=== PATIENT | female | born 1950 | race Caucasian/White ===

== ENCOUNTER → 2016-12-17 | Outpatient (CLI) | payer OTHER ==
[~2016-12-17] MED LIST: ASPI81TA5 PO; BUTA1TAB30 PO; CARA1SUS3 PO; CARV6.25 PO; GABA300C5 PO; HYDR-3516 PO; LEVO25TA4 PO; LIPI40TA PO; LORA-373 PO; LOSA25TA PO; OXYC-392 PO; PANT40TA3 PO; PLAV75TA29 PO; REGL10TA5 PO; SERT-129 PO; TRAZ50TA12 PO; ZOFR4TAB PO
[2016-12-17 12:51] LABS: HEMATOCRIT 35.9 % (35.0-46.0); MEAN CELL VOLUME 86.1 FL (80.0-100.0); MEAN CORPUSCULAR HEMOGLOBIN 27.9 PG (27.0-34.0); MEAN CORPUSCULAR HGB CONC 32.4 % (32.0-36.0); PLATELET COUNT 221 TH/MM3 (150-450); RED BLOOD COUNT 4.17 MIL/MM3 (4.00-5.30); RED CELL DISTRIBUTION WIDTH 15.9 % (11.6-17.2); REVIEW FLAG FINAL; WHITE BLOOD COUNT 8.5 TH/MM3 (4.0-11.0)
[2016-12-17 12:52] LABS: APTT (PATIENT) 27.5 SEC (24.3-30.1); PROTHROMBIN TIME - PATIENT 11.3 SEC (9.8-11.6)
[2016-12-17 13:10] LABS: BICARBONATE 29.2 MEQ/L (21.0-32.0); POTASSIUM 4.7 MEQ/L (3.5-5.1)
--- NOTE | 2016-12-17 13:11 | RADRPT ---
EXAM DATE/TIME: 12/17/2016 12:54 [place] COMPARISON: No previous studies available for comparison. INDICATIONS : Evaluate for pneumothorax, pneumonia, and communicable diseases. Pre-op groin surgery MEDICAL HISTORY : None. SURGICAL HISTORY : Valve replacement 4yrs ago ENCOUNTER: Initial ACUITY: 1 day PAIN SCORE: 0/10 LOCATION: chest FINDINGS: No infiltrate, effusion or pneumothorax. Heart size normal. Patient has had previous median sternotom y, CABG and valve replacement. Surgical changes of the left breast and left axilla noted. CONCLUSION: No evidence of acute cardiopulmonary disease. Luigi Dillard MD on December 17, 2016 at 13:09 Board Certified Radiologist. This report was verified electronically.
[2016-12-17 13:34] LABS: BACTERIA, URINE RARE /hpf; BLOOD, URINE TRACE (NEG); COMMENT (UR) CULT NOT INDICATED; CULTURE IF INDICATED CULT NOT INDICATED; GLUCOSE,URINE NEG (NEG); KETONE, URINE NEG (NEG); NITRITE,URINE NEG (NEG); PH, URINE 6.5 (5.0-8.5); URINE COLOR YELLOW (YELLW/STRAW)
--- NOTE | 2016-12-19 13:06 | EKG ---
Date Performed: 12/17/2016 Time Performed: 11:37:40 PTAGE: 66 years EKG: SINUS BRADYCARDIA NONSPECIFIC T-WAVE ABNORMALITY BORDERLINE ECG NO PREVIOUS TRACING DOCTOR: Devyn Jones Interpretating Date/Time 12/19/2016 12:56:27
== END ==
LOC: CPRE 11:17
PROVIDERS: ATTEND Surgery
DX: Z01.810 Encounter for preprocedural cardiovascular examination (principal); Z01.811 Encounter for preprocedural respiratory examination; Z01.812 Encounter for preprocedural laboratory examination; I73.9 Peripheral vascular disease, unspecified; R94.31 Abnormal electrocardiogram [ECG] [EKG]
CPT/HCPCS: 36415; 71020; 80048; 81001; 85027; 85610; 85730; 86850; 86900; 86901; 86920; 93005

== ENCOUNTER 2016-12-19 05:59 | Inpatient (IN) | payer OTHER, MEDICARE ==
[~2016-12-19] VITALS: Ht 157.5 cm; Wt 54.0 kg
[2016-12-19] VITALS (11 sets, daily range): BP systolic 132–165; BP diastolic 71–97; PULSE 61–75; RESP 16–18; TEMP 97.7–98.6; O2SAT 94–98
[~2016-12-19 05:59] MED LIST changes: -OXYC-392 PO
[2016-12-19] MEDS ORDERED: METOPROLOL TARTRATE 25 MG TAB PO PRN (06:15)
[2016-12-19] MEDS ORDERED: LACTATED RINGER'S 1000 ML IV PRN (06:15)
[2016-12-19] MEDS ORDERED: INSULIN HUMAN REGULAR 1,000 UNITS/10 ML VIAL SQ PRN (06:15)
[2016-12-19] MEDS ORDERED: SODIUM CHLORID 0.9% 500 ML IV PRN (06:15)
[2016-12-19] MEDS ORDERED: CHLORHEXIDINE GLUCONATE 2 % 1 PACK (2 CLOTHS) TOPICAL PRN (06:15)
[2016-12-19] MEDS ORDERED: POVIDONE IODINE 5% (ANTISEPSIS KIT) 4 APPLICATIONS EACH NARE PRN (06:15)
[2016-12-19] MEDS ORDERED: MIDAZOLAM HCL 2 MG/2 ML VIAL ONE (08:23)
[2016-12-19] MEDS ORDERED: DEXAMETHASONE SOD PHOS 4 MG/ML VIAL ONE (08:23)
[2016-12-19] MEDS ORDERED: ACETAMINOPHEN 1000 MG/100 ML 100 ML IV ONE (08:23)
[2016-12-19] MEDS ORDERED: FAMOTIDINE 20 MG/2 ML VIAL ONE (08:23)
--- NOTE | 2016-12-19 08:45 | HHI.HP ---
History of Present Illness Chief Complaint: LEFT leg pain, threatened bypass History of Present Illness 66 yo female with PAD who has undergone ABF and L LE bypass and what sounds like R LE endovascular intervention. She has symptoms consistent with vasculogenic claudication but ABIs are 1. A CTA done to evaluate that showed that her LEFT profunda is disconnected, so in essence she has an aorto- popliteal prosthetic bypass. After a long discussion with the patient and her family, I think the termite treater patency is much improved with a groin reconstruction (ilioprofunda bypass). Patient understands procedure and is ready to proceed. Past/Family/Social History Past Medical History HTN brast CA COPD gastroparesis HTN hypothyroidism CVOD Past Surgical History ABF L fem-pop Social History smoker Family History NC Home Medications Reported Medications Butalbital-Acetaminophen (Butalbital-Acetaminophen) 50-325 Mg Tab, 1-2 TAB PO Q4HR Y for HEADACHE, TAB 0 Refills Do not exceed 6 tablets per day. 12/17/16 Sucralfate Liq (Carafate Liq) 1 Gm/10 Ml Susp, 1 GM PO QID Y for NAUSEA, #1200 ML 0 Refills on empty stomach 12/17/16 Ondansetron (Zofran) 4 Mg Tab, 4 MG PO Q12HR Y for NAUSEA OR VOMITING, TAB 0 Refills 12/17/16 Gabapentin (Gabapentin) 300 Mg Cap, 300 MG PO TID, #90 CAP 0 Refills 12/17/16 Hydrocodone-Acetaminophen (Hydrocodone-Acetaminophen) 5-325 mg Tab, PO Q4H Y for PAIN, TAB 0 Refills 12/17/16 Pantoprazole (Pantoprazole) 40 Mg Tab, 40 MG PO HS for Reflux, #30 TAB 0 Refills 12/17/16 Trazodone (Trazodone) 50 Mg Tab, 50 MG PO HS for Control Depression, #30 TAB 0 Refills 12/17/16 Atorvastatin (Lipitor) 40 Mg Tab, 40 MG PO HS for Cholesterol Management, #30 TAB 0 Refills 12/17/16 Lorazepam (Lorazepam) 0.5 Mg Tab, 0.5 MG PO BID Y for ANXIETY, TAB 0 Refills 12/17/16 Losartan (Losartan) 25 Mg Tab, 12.5 MG PO BID for Blood Pressure Management, # 15 TAB 0 Refills 12/17/[address] (Aspirin ) 81 Mg Tabdr, 81 MG PO DAILY, TAB 0 Refills 12/17/16 Clopidogrel (Plavix) 75 Mg Tab, 75 MG PO DAILY for Blood Clot Prevention, #30 TAB [address] kelley told her not to stop taking 12/17/16 Sertraline (Sertraline) 100 Mg Tab, 100 MG PO DAILY, #30 TAB 0 Refills 12/17/16 Carvedilol (Coreg) 6.25 Mg Tab, 6.25 MG PO BID, #60 TAB 0 Refills pt takes at 9am and 5pm 12/17/16 Metoclopramide (Reglan) 10 Mg Tab, 10 MG PO TIDAC, TAB 0 Refills 12/17/16 Levothyroxine (Levothyroxine) 25 Mcg Tab, 40 MCG PO DAILY for Thyroid, #30 TAB 0 Refills 12/17/16 Coded Allergies: No Known Allergies (Unverified , 12/19/16) Review of Systems Constitutional: COMPLAINS OF: Diaphoretic episodes, DENIES: Fever, Night Sweats Cardiovascular: COMPLAINS OF: Claudication, DENIES: Chest pain Physical Exam Vitals/I&O Date Time Temp Pulse Resp B/P (MAP) Pulse Ox O2 Delivery O2 Flow Rate FiO2 12/19/16 07:16 97.9 62 20 153/76 (101) 95 Neuro: alert, oriented HEENT: NC/AT; EOMI Neck: no JVD Heart: reg rate, no M Lungs: clear B Abdomen: soft, NT Vascular: palpable femoral pulses Extremities: no wounds cr 0.9 INR 1.0 Hct 36 plt 221 Caprini VTE Risk Assessment Caprini VTE Risk Assessment: Mod/High Risk (score >= 2) Caprini Risk Assessment Model Point Value = 1 Point Value = 2 Point Value = 3 Point Value = 5 Age 41-60 Minor surgery BMI > 25 kg/m2 Swollen legs Varicose veins or History of unexplained or recurrent spontaneous Oral contraceptives or hormone replacement Sepsis (< 1 month) Serious lung disease, including pneumonia (< 1 month) Abnormal pulmonary function Acute myocardial infarction Congestive heart failure (< 1 month) History of inflammatory bowel disease Medical patient at bed rest Age 61-74 Arthroscopic surgery Major open surgery (> 45 min) Laparoscopic surgery (> 45 min) Malignancy Confined to bed (> 72 hours) Immobilizing plaster cast Central venous access Age >= 75 History of VTE Family history of VTE Factor V Leiden Prothrombin [id number] Lupus anticoagulant Anticardiolipin antibodies Elevated serum homocysteine Heparin-induced thrombocytopenia Other congenital or acquired thrombophilia Stroke (< 1 month) Elective arthroplasty Hip, pelvis, or leg fracture Acute spinal cord injury (< 1 month) Prophylaxis Regimen Total Risk Factor Score Risk Level Prophylaxis Regimen 0-1 Low Early ambulation 2 Moderate Order ONE of the following: *Sequential Compression Device (SCD) *Heparin 5000 units SQ BID 3-4 Higher Order ONE of the following medications: *Heparin 5000 units SQ TID *Enoxaparin/Lovenox 40 mg SQ daily (WT < 150 kg, CrCl > 30 mL/min) *Enoxaparin/Lovenox 30 mg SQ daily (WT < 150 kg, CrCl > 10-29 mL/min) *Enoxaparin/Lovenox 30 mg SQ BID (WT < 150 kg, CrCl > 30 mL/min) AND/OR *Sequential Compression Device (SCD) 5 or more Highest Order ONE of the following medications: *Heparin 5000 units SQ TID (Preferred with Epidurals) *Enoxaparin/Lovenox 40 mg SQ daily (WT < 150 kg, CrCl > 30 mL/min) *Enoxaparin/Lovenox 30 mg SQ daily (WT < 150 kg, CrCl > 10-29 mL/min) *Enoxaparin/Lovenox 30 mg SQ BID (WT < 150 kg, CrCl > 30 mL/min) AND *Sequential Compression Device (SCD) Assessment and Plan Plan L groin reconstruction today Pt understands risks, benefits. To OR. Operative site marked Tomas Kelley MD Dec 19, 2016 08:45
[2016-12-19] MEDS ORDERED: HEPARIN SODIUM - IV 10,000 UNITS/10 ML VIAL ONE (08:57)
[2016-12-19] MEDS ORDERED: HEPARIN-NS/PF INJ 500 ML ONE (08:57)
[2016-12-19] MEDS ORDERED: ceFAZolin INJ 1,000 MG VIAL ONE (08:57)
[2016-12-19] MEDS ORDERED: BUPIVACAINE/EPINEPHRINE 0.5% PF 30 ML VIAL ONE (08:57)
[2016-12-19] MEDS ORDERED: PROTAMINE SULFATE 50 MG/5 ML VIAL ONE (11:05)
--- NOTE | 2016-12-19 11:37 | HHI.PR ---
Immediate Post Op Note Procedure Date: Dec 19, 2016 Pre Op Diagnosis: Threatened L LE bypass, PAD Post Op Diagnosis: threatened L LE bypass, PAD Surgeon: Tomas Munoz Automatic Lathe Operator(s): Davi Mancia Procedure: 1. L ilioprofunda bypass with 8mm Dacron 2. L MEDICAL RESEARCH ASSOCIATE-SFA bypass with 6mm Dacron Findings: occluded proximal profunda, able to bypass with 4 patent outflow profunda branches Additional Information: Strong pedal Doppler signals Complications: none apparent Specimen(s) removed: none for pathology Estimated blood loss: 200 mL Anesthesia: General Drains: None Fluids: 2100mL x'oid; 1050mL UOP IVF Patient to: PACU Patient Condition: Good Implant/Devices: SEE IMPLANT LOG (if applicable) Date/Time of Procedure: SEE SURGICAL CARE RECORD Tomas Munoz MD Dec 19, 2016 11:37
[2016-12-19] MEDS ORDERED: SUCRALFATE 1 GM/10 ML CUP PO PRN (11:45)
[2016-12-19] MEDS ORDERED: ONDANSETRON ODT 4 MG TAB PO PRN (11:45)
[2016-12-19] MEDS ORDERED: LORazepam 0.5 MG TAB PO PRN (11:45)
[2016-12-19] MEDS ORDERED: NORMOSOL R INJ 2,000 ML IV ONE (11:48)
[2016-12-19] MEDS ORDERED: ePHEDrine/NS 25 MG/5 ML SYR IV ONE (11:48)
[2016-12-19] MEDS ORDERED: PROPOFOL 200 MG/20 ML AMP IV ONE (11:48)
[2016-12-19] MEDS ORDERED: NEOSTIGMINE 3 MG/3 ML SYR IV ONE (11:48)
[2016-12-19] MEDS ORDERED: SODIUM CHLORID 0.9% 500 ML INJ 500 ML IV ONE (11:48)
[2016-12-19] MEDS ORDERED: PHENYLEPH/NS 1000 MCG/10 ML SYR IV ONE (11:48)
[2016-12-19] MEDS ORDERED: DO NOT ADM ANY ANTICOAGULANT DRUGS PRN (11:59)
[2016-12-19] MEDS ORDERED: *morphine SULFATE 8 MG/ML PERIprocedure ONLY ONE ×2 (12:09→12:41)
[2016-12-19] MEDS: GABAPENTIN 300 MG CAP PO SCH ×2 (13:21→17:07)
[2016-12-19] MEDS: HYDROmorphone HCL 2 MG TAB PO PRN ×3 (13:21→21:16)
[2016-12-19] MEDS: MORPHINE SULFATE 4 MG/ML INJ IV PRN ×5 (13:22→23:38)
[2016-12-19] MEDS ORDERED: PILL SPLITTER OTHER PRN (13:30)
[2016-12-19] MEDS: METOCLOPRAMIDE HCL 10 MG TAB PO SCH ×2 (14:56→17:07)
--- NOTE | 2016-12-19 18:27 | MP ---
cc: SARAH MUNOZ MD DATE OF SURGERY 12/19/16 PREOPERATIVE DIAGNOSIS Threatened left lower exam bypass. POSTOPERATIVE DIAGNOSIS Threatened left lower exam bypass. PROCEDURE 1. Left ileal profunda bypass with 8 mm Dacron. 2. Left common femoral artery SFA bypass with 6 mm Dacron. ATTENDING SURGEON Dr. Sarah Munoz LEDGER CLERK Davi Mancia ANESTHESIA General. INDICATIONS Ms. Rodríguez is 66-year-old lady who has a history of aortobifemoral bypass graft in the femoral, below-knee popliteal artery bypass graft. She has a disconnected profunda femoris and in essence I converted her graft to an aorta popliteal bypass because of the high likelihood of this occluding and threatening her limb imminently. She was offered a groin reconstruction. DESCRIPTION OF THE PROCEDURE Informed consent was obtained from the patient. She was taken to the operating room and placed supine on the operating table. An appropriate time-out was taken to ensure the patient's identity, operative site and planned procedure. One gram of Ancef was initiated prior to skin incision, will be discontinued after single preoperative dose. Everyone in the room agreed to time-out, we proceeded. She was prepped from her nipples to the toes. An incision made along the patient's left groin, carried down through the subcutaneous tissue with electrocautery. The limb of the aVF graft was identified, dissected free and encircled with vessel loop. 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 The second, third profunda branches were dissected free. The patient was systematically heparinized and throughout the remainder of the case the ACT of 250. A Anel soft jaw was placed on the aVF limb. Profunda clamps were placed on the fem-pop bypass as well as four branches, the profunda. The common femoral artery in essence was excised including the proximal fem-pop bypass graft. Eight mm Dacron sewn end-to-end to the aVF limbs with running 5-0 Prolene suture and then end-to-end to a spatulated profunda clamp. The clamps were all released and there was Doppler signals in all four branches of profunda. The clamps were reapplied. The graft was incised with an 11 blade and 6 mm Dacron was sewn end-to-side to the graft with running 5-0 Prolene suture and then end-to-end to the fem-pop bypass with 5-0 Prolene suture. At the completion all the clamps released. There were Doppler signals in the foot. There are palpable pulses in the profunda and in the fem-pop bypass. The heparin was reversed with protamine. The wound was made hemostatic, closed with 2-0 Polysorb, 3-0 Polysorb, 4-0 Monocryl. The sponge, needle counts were correct at the end of the case. I was present scrubbed and performed the entire procedure. MD NICOLE Mora/MYNOR /1:01 PM /5:54 PM MTDEstevan
[2016-12-19] MEDS: CARVEDILOL 6.25 MG TAB PO SCH (19:36)
[2016-12-19] MEDS: FAMOTIDINE 20 MG TAB PO SCH (19:36)
[2016-12-19] MEDS: traZODone HCL 50 MG TAB PO SCH (19:36)
[2016-12-19] MEDS: DOCUSATE SODIUM 100 MG CAP PO SCH (19:36)
[2016-12-19] MEDS: ATORVASTATIN 40 MG TAB PO SCH (19:37)
[2016-12-19] MEDS: LOSARTAN 25 MG TAB PO SCH (21:12)
[2016-12-20] VITALS (25 sets, daily range): BP systolic 134–173; BP diastolic 71–78; PULSE 60–77; RESP 12–18; TEMP 97.5–99.4; O2SAT 91–97
[2016-12-20] MEDS: HYDROmorphone HCL 2 MG TAB PO PRN ×5 (03:37→23:48)
[2016-12-20] MEDS: MORPHINE SULFATE 4 MG/ML INJ IV PRN ×4 (04:50→20:54)
[2016-12-20] MEDS: LEVOTHYROXINE SODIUM 50 MCG TAB PO SCH (05:58)
[2016-12-20 07:34] LABS: HEMATOCRIT 29.8 % (35.0-46.0); MEAN CELL VOLUME 84.8 FL (80.0-100.0); MEAN CORPUSCULAR HEMOGLOBIN 27.8 PG (27.0-34.0); MEAN CORPUSCULAR HGB CONC 32.8 % (32.0-36.0); PLATELET COUNT 166 TH/MM3 (150-450); RED BLOOD COUNT 3.51 MIL/MM3 (4.00-5.30); REVIEW FLAG FINAL; WHITE BLOOD COUNT 8.2 TH/MM3 (4.0-11.0)
[2016-12-20] MEDS: METOCLOPRAMIDE HCL 10 MG TAB PO SCH ×3 (07:39→17:49)
--- NOTE | 2016-12-20 07:40 | PD.VS.PN ---
Subjective POD #: 1 Procedure(s): L groin reconstruction Subjective/Hospital Course pain in L groin, appropriate for surgery no lower leg pain otherwise doing well Objective Vitals/I&O Date Time Temp Pulse Resp B/P (MAP) Pulse Ox O2 Delivery O2 Flow Rate FiO2 12/20/16 06:00 60 12/20/16 05:00 68 12/20/16 04:00 60 12/20/16 03:00 68 12/20/16 03:00 98.8 67 18 140/74 (96) 94 12/20/16 02:00 67 12/20/16 01:00 63 12/20/16 00:00 64 12/19/16 23:00 68 12/19/16 23:00 98.6 75 18 165/74 (104) 95 12/19/16 22:00 68 12/19/16 21:00 68 12/19/16 20:00 70 12/19/16 19:51 97.8 66 18 138/87 (104) 94 12/19/16 19:00 69 12/19/16 17:41 16 12/19/16 17:17 16 12/19/16 16:33 70 12/19/16 16:29 97.7 68 16 132/97 (109) 98 12/19/16 15:00 68 12/19/16 14:00 62 12/19/16 13:11 97.9 61 16 133/71 (91) 96 12/19/16 13:00 64 16 138/64 (88) 96 Nasal Cannula 2 12/19/16 12:45 56 16 113/59 (77) 94 Nasal Cannula 2 12/19/16 12:30 58 16 120/56 (77) 95 Nasal Cannula 2 12/19/16 12:15 58 16 130/64 (86) 94 Nasal Cannula 2 12/19/16 12:14 16 12/19/16 12:00 61 16 169/81 (110) 92 Nasal Cannula 2 12/19/16 11:55 97.4 63 16 174/81 (112) 93 Nasal Cannula 2 12/20/16 12/20/16 12/20/16 07:00 15:00 23:00 Intake Total 480 ml Output Total 800 ml Balance -320 ml Exam: L groin soft, Skin VAC in place Pulses: palpable pedal pulses Laboratory Laboratory Tests Test 12/20/16 05:40 White Blood Count 8.2 Red Blood Count 3.51 Hemoglobin 9.8 Hematocrit 29.8 Mean Corpuscular Volume 84.8 Mean Corpuscular Hemoglobin 27.8 Mean Corpuscular Hemoglobin Concent 32.8 Red Cell Distribution Width 16.0 Platelet Count 166 Mean Platelet Volume 7.8 Assessment and Plan Plan POD#1 s/p L groin reconstruction; looks great 1. D/C Acevedo 2. OOB TC and start PT/ambulate 3. Reg diet, resume all preop meds Discharge Planning 2-3 days Tomas Munoz MD Dec 20, 2016 07:40
[2016-12-20] MEDS ORDERED: ACETAMINOPHEN 325 MG TAB PO PRN (07:45)
[2016-12-20 08:00] LABS: BICARBONATE 25.2 MEQ/L (21.0-32.0); POTASSIUM 3.5 MEQ/L (3.5-5.1)
[2016-12-20] MEDS: LOSARTAN 25 MG TAB PO SCH ×2 (08:30→20:55)
[2016-12-20] MEDS: CLOPIDOGREL 75 MG TAB PO SCH (08:31)
[2016-12-20] MEDS: CARVEDILOL 6.25 MG TAB PO SCH ×2 (08:31→20:54)
[2016-12-20] MEDS: SERTRALINE HCL 100 MG TAB PO SCH (08:31)
[2016-12-20] MEDS: GABAPENTIN 300 MG CAP PO SCH ×3 (08:31→17:48)
[2016-12-20] MEDS: FAMOTIDINE 20 MG TAB PO SCH ×2 (08:31→20:54)
[2016-12-20] MEDS: ASPIRIN 325 MG TAB PO SCH (08:31)
[2016-12-20] MEDS: DOCUSATE SODIUM 100 MG CAP PO SCH ×2 (08:31→20:55)
[2016-12-20] MEDS: ENOXAPARIN SODIUM 30 MG/0.3 ML SYRINGE SQ SCH (12:36)
[2016-12-20] MEDS: traZODone HCL 50 MG TAB PO SCH (20:55)
[2016-12-20] MEDS: ATORVASTATIN 40 MG TAB PO SCH (20:55)
[2016-12-21] VITALS (25 sets, daily range): BP systolic 100–183; BP diastolic 51–97; PULSE 60–98; RESP 18–20; TEMP 97.3–99.1; O2SAT 90–96
[2016-12-21] MEDS: HYDROmorphone HCL 2 MG TAB PO PRN ×5 (03:20→20:11)
[2016-12-21] MEDS: MORPHINE SULFATE 4 MG/ML INJ IV PRN ×2 (04:44→08:31)
[2016-12-21] MEDS: LEVOTHYROXINE SODIUM 50 MCG TAB PO SCH (05:57)
--- NOTE | 2016-12-21 07:17 | PD.VS.PN ---
Subjective POD #: 2 Procedure(s): L groin reconstruction Subjective/Hospital Course pain in L groin, appropriate for surgery no lower leg pain otherwise doing well Scarlet diet; got OOB yesterday; urinated since Acevedo out Objective Vitals/I&O Date Time Temp Pulse Resp B/P (MAP) Pulse Ox O2 Delivery O2 Flow Rate FiO2 12/21/16 06:00 73 12/21/16 05:00 76 12/21/16 04:00 76 12/21/16 03:00 78 12/21/16 03:00 99.1 80 18 183/97 (125) 90 12/21/16 02:00 71 12/21/16 01:00 81 12/21/16 00:00 72 12/20/16 23:00 68 12/20/16 23:00 99.2 73 18 134/71 (92) 91 12/20/16 22:00 72 12/20/16 21:00 76 12/20/16 20:00 99.2 77 18 159/77 (104) 92 12/20/16 20:00 74 12/20/16 19:00 74 12/20/16 19:00 73 12/20/16 18:00 70 12/20/16 17:00 72 12/20/16 16:00 68 12/20/16 15:50 20 12/20/16 15:10 16 12/20/16 15:00 99.4 69 16 154/78 (103) 96 12/20/16 15:00 66 12/20/16 14:00 68 12/20/16 13:00 64 12/20/16 12:00 62 12/20/16 11:00 98.4 64 12 149/73 (98) 96 12/20/16 11:00 62 12/20/16 10:00 72 12/20/16 09:00 66 12/20/16 08:00 68 12/20/16 07:30 62 16 139/73 (95) 97 12/21/16 12/21/16 12/21/16 07:00 15:00 23:00 Intake Total 400 ml Balance 400 ml Exam: L groin Provena intact; no hematoma Pulses: palpable PT Assessment and Plan Plan POD#2 s/p L groin reconstruction; looks great 1. OOB/PT 2. reg diet and meds Discharge Planning 2-3 days Tomas Munoz MD Dec 21, 2016 07:17
[2016-12-21] MEDS: ASPIRIN 325 MG TAB PO SCH (09:00)
[2016-12-21] MEDS: DOCUSATE SODIUM 100 MG CAP PO SCH ×2 (09:44→20:11)
[2016-12-21] MEDS: CLOPIDOGREL 75 MG TAB PO SCH (09:44)
[2016-12-21] MEDS: SERTRALINE HCL 100 MG TAB PO SCH (09:44)
[2016-12-21] MEDS: FAMOTIDINE 20 MG TAB PO SCH ×2 (09:44→20:11)
[2016-12-21] MEDS: LOSARTAN 25 MG TAB PO SCH ×2 (09:44→20:11)
[2016-12-21] MEDS: GABAPENTIN 300 MG CAP PO SCH ×3 (09:44→18:24)
[2016-12-21] MEDS: CARVEDILOL 6.25 MG TAB PO SCH ×2 (09:44→20:11)
[2016-12-21] MEDS: METOCLOPRAMIDE HCL 10 MG TAB PO SCH ×3 (09:44→14:06)
[2016-12-21] MEDS: ENOXAPARIN SODIUM 30 MG/0.3 ML SYRINGE SQ SCH (12:07)
[2016-12-21] MEDS: traZODone HCL 50 MG TAB PO SCH (20:11)
[2016-12-21] MEDS: ATORVASTATIN 40 MG TAB PO SCH (20:11)
[2016-12-22] VITALS (26 sets, daily range): BP systolic 119–155; BP diastolic 58–83; PULSE 56–93; RESP 18–19; TEMP 97.3–99.1; O2SAT 92–96
[2016-12-22] MEDS: LEVOTHYROXINE SODIUM 50 MCG TAB PO SCH (05:42)
[2016-12-22] MEDS: HYDROmorphone HCL 2 MG TAB PO PRN ×3 (05:42→17:29)
[2016-12-22] MEDS: MORPHINE SULFATE 4 MG/ML INJ IV PRN (06:28)
[2016-12-22] MEDS: METOCLOPRAMIDE HCL 10 MG TAB PO SCH ×3 (08:00→17:29)
--- NOTE | 2016-12-22 08:16 | PD.VS.PN ---
Subjective POD #: 3 Procedure(s): L groin reconstruction Subjective/Hospital Course pain in L groin, appropriate for surgery no lower leg pain Scarlet diet; got OOB yesterday Overall feels well Objective Vitals/I&O Date Time Temp Pulse Resp B/P (MAP) Pulse Ox O2 Delivery O2 Flow Rate FiO2 12/22/16 08:00 59 12/22/16 07:36 18 12/22/16 07:36 18 12/22/16 07:00 86 12/22/16 07:00 97.4 80 18 155/83 (107) 92 12/22/16 06:16 78 12/22/16 05:49 85 12/22/16 04:03 80 12/22/16 03:50 98.0 86 18 149/79 (102) 92 12/22/16 03:30 83 12/22/16 02:11 82 12/22/16 01:08 78 12/22/16 00:00 72 12/21/16 23:11 69 12/21/16 23:07 98.9 71 19 100/51 (67) 95 12/21/16 22:00 68 12/21/16 21:13 68 12/21/16 20:10 80 12/21/16 19:30 73 12/21/16 19:30 98.9 78 18 112/54 (73) 93 12/21/16 18:00 76 12/21/16 17:00 76 12/21/16 16:00 80 12/21/16 15:00 74 12/21/16 15:00 97.9 78 18 132/74 (93) 96 12/21/16 14:00 60 12/21/16 13:00 75 12/21/16 12:00 72 12/21/16 11:00 76 12/21/16 11:00 97.9 75 20 127/76 (93) 92 12/21/16 10:53 16 12/21/16 10:00 82 12/21/16 09:00 76 12/21/16 09:00 75 12/22/16 12/22/16 12/22/16 06:59 14:59 22:59 Intake Total 480 ml Output Total 400 ml Balance 80 ml Exam: L groin soft; Provena VAC in place palpable L PT Assessment and Plan Plan POD#3 s/p L groin reconstruction; looks great 1. OOB/PT 2. reg diet and meds Discharge Planning Tomas Munoz MD Dec 22, 2016 08:16
[2016-12-22] MEDS: ASPIRIN 325 MG TAB PO SCH (08:39)
[2016-12-22] MEDS: FAMOTIDINE 20 MG TAB PO SCH ×2 (08:39→20:34)
[2016-12-22] MEDS: LOSARTAN 25 MG TAB PO SCH ×2 (08:39→20:34)
[2016-12-22] MEDS: CARVEDILOL 6.25 MG TAB PO SCH ×2 (08:39→20:34)
[2016-12-22] MEDS: SERTRALINE HCL 100 MG TAB PO SCH (08:39)
[2016-12-22] MEDS: GABAPENTIN 300 MG CAP PO SCH ×3 (08:39→17:28)
[2016-12-22] MEDS: DOCUSATE SODIUM 100 MG CAP PO SCH ×2 (08:39→20:34)
[2016-12-22] MEDS: CLOPIDOGREL 75 MG TAB PO SCH (08:39)
[2016-12-22] MEDS: ENOXAPARIN SODIUM 30 MG/0.3 ML SYRINGE SQ SCH (12:00)
[2016-12-22] MEDS: ATORVASTATIN 40 MG TAB PO SCH (20:34)
[2016-12-22] MEDS: traZODone HCL 50 MG TAB PO SCH (20:34)
[2016-12-23] VITALS (25 sets, daily range): BP systolic 110–163; BP diastolic 59–81; PULSE 63–103; RESP 18–20; TEMP 97.2–99.6; O2SAT 90–95
[2016-12-23] MEDS: HYDROmorphone HCL 2 MG TAB PO PRN ×5 (00:26→21:05)
[2016-12-23] MEDS: LEVOTHYROXINE SODIUM 50 MCG TAB PO SCH (06:10)
--- NOTE | 2016-12-23 08:43 | PD.VS.PN ---
Subjective POD #: 4 Procedure(s): L groin reconstruction Subjective/Hospital Course pain in L groin, appropriate for surgery otherwise doing well Objective Vitals/I&O Date Time Temp Pulse Resp B/P (MAP) Pulse Ox O2 Delivery O2 Flow Rate FiO2 12/23/16 08:00 69 12/23/16 07:34 18 12/23/16 07:00 66 12/23/16 07:00 97.2 68 18 114/66 (82) 90 12/23/16 06:30 68 12/23/16 05:36 68 12/23/16 04:00 67 12/23/16 03:50 98.8 71 19 110/59 (76) 93 12/23/16 03:20 67 12/23/16 02:09 70 12/23/16 01:15 71 12/23/16 00:57 72 12/22/16 23:50 98.2 74 18 119/58 (78) 93 12/22/16 23:00 67 12/22/16 22:00 66 12/22/16 21:00 72 12/22/16 20:00 72 12/22/16 19:15 66 12/22/16 19:15 99.1 72 19 139/69 (92) 93 12/22/16 18:00 56 12/22/16 17:00 77 12/22/16 16:00 87 12/22/16 15:20 16 12/22/16 15:00 63 12/22/16 15:00 98.3 77 18 123/77 (92) 96 12/22/16 14:00 77 12/22/16 13:00 74 12/22/16 12:00 84 12/22/16 11:04 97.3 93 18 128/65 (86) 96 12/22/16 10:00 73 12/22/16 09:00 74 12/22/16 09:00 74 12/23/16 12/23/16 12/23/16 07:00 15:00 23:00 Intake Total 550 ml Output Total 1200 ml Balance -650 ml Exam: L groin VAC removed today - incision c/d/i minimal edema no hematoma no erythema palpable PT at foot Assessment and Plan Plan POD#4 s/p L groin reconstruction; looks great 1. OOB/PT 2. reg diet and meds Discharge Planning Tues/Wed likely to rehab Tomas Munoz MD Dec 23, 2016 08:43
[2016-12-23] MEDS: FAMOTIDINE 20 MG TAB PO SCH ×2 (09:16→21:04)
[2016-12-23] MEDS: CARVEDILOL 6.25 MG TAB PO SCH ×2 (09:16→21:04)
[2016-12-23] MEDS: DOCUSATE SODIUM 100 MG CAP PO SCH ×2 (09:16→21:04)
[2016-12-23] MEDS: SERTRALINE HCL 100 MG TAB PO SCH (09:16)
[2016-12-23] MEDS: METOCLOPRAMIDE HCL 10 MG TAB PO SCH ×3 (09:16→17:05)
[2016-12-23] MEDS: CLOPIDOGREL 75 MG TAB PO SCH (09:16)
[2016-12-23] MEDS: LOSARTAN 25 MG TAB PO SCH ×2 (09:17→21:04)
[2016-12-23] MEDS: GABAPENTIN 300 MG CAP PO SCH ×3 (09:17→17:05)
[2016-12-23] MEDS: ASPIRIN 325 MG TAB PO SCH (09:17)
[2016-12-23] MEDS: ENOXAPARIN SODIUM 30 MG/0.3 ML SYRINGE SQ SCH (11:44)
[2016-12-23] MEDS: MORPHINE SULFATE 4 MG/ML INJ IV PRN (12:40)
[2016-12-23] MEDS: ATORVASTATIN 40 MG TAB PO SCH (21:04)
[2016-12-23] MEDS: traZODone HCL 50 MG TAB PO SCH (21:04)
[2016-12-24] VITALS (28 sets, daily range): BP systolic 128–193; BP diastolic 67–93; PULSE 62–85; RESP 12–20; TEMP 97.6–99.1; O2SAT 93–97
[2016-12-24] MEDS: HYDROmorphone HCL 2 MG TAB PO PRN ×4 (03:32→23:49)
[2016-12-24] MEDS: LEVOTHYROXINE SODIUM 50 MCG TAB PO SCH (06:30)
--- NOTE | 2016-12-24 09:17 | PD.VS.PN ---
Subjective POD #: 5 Procedure(s): L groin reconstruction Subjective/Hospital Course pain in L groin, making it hard for her to bear weight foot ok Objective Vitals/I&O Date Time Temp Pulse Resp B/P (MAP) Pulse Ox O2 Delivery O2 Flow Rate FiO2 12/24/16 06:07 73 12/24/16 05:19 72 12/24/16 04:14 70 12/24/16 03:25 98.7 70 18 152/85 (107) 93 12/24/16 03:25 69 12/24/16 02:45 68 12/24/16 01:19 69 12/24/16 00:03 71 12/23/16 23:59 98.8 73 20 151/81 (104) 93 12/23/16 23:59 73 12/23/16 22:13 72 12/23/16 21:30 73 12/23/16 20:15 70 12/23/16 19:45 99.6 75 19 163/81 (108) 95 12/23/16 19:45 72 12/23/16 18:37 16 12/23/16 18:00 103 12/23/16 17:00 76 12/23/16 16:00 64 12/23/16 15:00 68 12/23/16 15:00 98.7 68 18 122/68 (86) 91 12/23/16 14:00 74 12/23/16 13:00 68 12/23/16 12:44 15 12/23/16 12:00 88 12/23/16 11:51 18 12/23/16 11:00 98.3 68 18 142/76 (98) 94 12/23/16 11:00 68 12/23/16 10:00 63 12/24/16 12/24/16 12/24/16 06:59 14:59 22:59 Intake Total 450 ml Output Total 1000 ml Balance -550 ml Exam: L groin incision c/d/i mild fullness caudal aspect but no hematoma no erythema palpable L PT Assessment and Plan Plan POD#5 s/p L groin reconstruction; looks great 1. OOB/PT 2. reg diet and meds Discharge Planning Wed likely to rehab Tomas Munoz MD Dec 24, 2016 09:17
[2016-12-24] MEDS: DOCUSATE SODIUM 100 MG CAP PO SCH ×2 (09:40→20:57)
[2016-12-24] MEDS: CLOPIDOGREL 75 MG TAB PO SCH (09:40)
[2016-12-24] MEDS: SERTRALINE HCL 100 MG TAB PO SCH (09:40)
[2016-12-24] MEDS: ASPIRIN 325 MG TAB PO SCH (09:40)
[2016-12-24] MEDS: METOCLOPRAMIDE HCL 10 MG TAB PO SCH ×3 (09:40→17:06)
[2016-12-24] MEDS: GABAPENTIN 300 MG CAP PO SCH ×3 (09:40→17:06)
[2016-12-24] MEDS: LOSARTAN 25 MG TAB PO SCH ×2 (09:41→20:56)
[2016-12-24] MEDS: CARVEDILOL 6.25 MG TAB PO SCH ×2 (09:41→20:56)
[2016-12-24] MEDS: FAMOTIDINE 20 MG TAB PO SCH ×2 (09:41→20:56)
[2016-12-24] MEDS: ENOXAPARIN SODIUM 30 MG/0.3 ML SYRINGE SQ SCH (12:16)
[2016-12-24] MEDS ORDERED: hydrALAZINE HCL 20 MG/ML VIAL IV PUSH ONE (17:00)
[2016-12-24] MEDS: MORPHINE SULFATE 4 MG/ML INJ IV PRN (17:56)
[2016-12-24] MEDS ORDERED: hydrALAZINE HCL 20 MG/ML VIAL IV ONE (19:00)
[2016-12-24] MEDS: ATORVASTATIN 40 MG TAB PO SCH (20:55)
[2016-12-24] MEDS: traZODone HCL 50 MG TAB PO SCH (20:56)
[2016-12-25] VITALS (17 sets, daily range): BP systolic 129–180; BP diastolic 72–90; PULSE 64–90; RESP 16–18; TEMP 98.3–98.9; O2SAT 94–98
[2016-12-25] MEDS: HYDROmorphone HCL 2 MG TAB PO PRN ×2 (05:11→12:39)
[2016-12-25] MEDS: LEVOTHYROXINE SODIUM 50 MCG TAB PO SCH (05:11)
[2016-12-25] MEDS: ASPIRIN 325 MG TAB PO SCH (08:34)
[2016-12-25] MEDS: LOSARTAN 25 MG TAB PO SCH (08:34)
[2016-12-25] MEDS: CARVEDILOL 6.25 MG TAB PO SCH (08:34)
[2016-12-25] MEDS: SERTRALINE HCL 100 MG TAB PO SCH (08:34)
[2016-12-25] MEDS: FAMOTIDINE 20 MG TAB PO SCH (08:34)
[2016-12-25] MEDS: GABAPENTIN 300 MG CAP PO SCH ×2 (08:34→12:38)
[2016-12-25] MEDS: METOCLOPRAMIDE HCL 10 MG TAB PO SCH ×2 (08:34→12:38)
[2016-12-25] MEDS: DOCUSATE SODIUM 100 MG CAP PO SCH (08:35)
[2016-12-25] MEDS: CLOPIDOGREL 75 MG TAB PO SCH (08:36)
--- NOTE | 2016-12-25 10:59 | PD.VS.PN ---
Subjective POD #: 6 Procedure(s): L groin reconstruction Subjective/Hospital Course Pt alert in NAD resting in bed comfortably Mild incisional Left groin pain w/ ambulation No hematoma present Objective Vitals/I&O Date Time Temp Pulse Resp B/P (MAP) Pulse Ox O2 Delivery O2 Flow Rate FiO2 12/25/16 10:00 66 12/25/16 09:00 72 12/25/16 08:11 98.9 90 17 180/87 (118) 98 12/25/16 08:00 66 12/25/16 07:30 66 12/25/16 06:00 68 12/25/16 05:00 70 12/25/16 04:00 68 12/25/16 03:00 67 12/25/16 03:00 98.7 70 16 129/72 (91) 94 12/25/16 02:00 66 12/25/16 01:00 66 12/25/16 00:00 68 12/24/16 23:00 69 12/24/16 23:00 99.1 73 12 128/67 (87) 95 12/24/16 22:00 74 12/24/16 21:01 98.8 85 20 155/80 (105) 96 12/24/16 21:00 78 12/24/16 20:00 82 12/24/16 19:00 81 12/24/16 18:00 80 12/24/16 17:00 64 12/24/16 16:00 64 12/24/16 15:27 98.1 65 16 193/93 (126) 97 12/24/16 15:00 63 12/24/16 14:00 64 12/24/16 13:00 62 12/24/16 12:21 97.6 66 16 145/82 (103) 97 12/24/16 12:00 68 12/24/16 11:00 66 12/25/16 12/25/16 12/25/16 07:00 15:00 23:00 Intake Total 480 ml Output Total 800 ml Balance -320 ml Exam: GENERAL: A&OX3,NAD,GCS15 SKIN: Warm and dry/ incision to left groin intact w/o erythema, drainage or swelling. No hematoma present BLE warm with motor intact Strong Palpable R/L DP Assessment and Plan Plan POD#6 s/p L groin reconstruction; looks great Plan D/C to rehab this afternoon Arranged OP F/U Tresa DELACRUZ [facility] [phone] Discharge Planning today to rehab Tresa Ayoub Dec 25, 2016 10:59
--- NOTE | 2016-12-25 11:08 | PD.VS.DC ---
Discharge Summary Admission Date: Dec 19, 2016 at 05:59 Discharge Date: Dec 25, 2016 Admission Diagnosis: (1) Hypertension (2) PAD (peripheral artery disease) Discharge Diagnosis: (1) Hypertension ICD Codes: I10 - Essential (primary) hypertension Status: Chronic (2) PAD (peripheral artery disease) ICD Codes: I73.9 - Peripheral vascular disease, unspecified Brief History from admission 66 yo female with PAD who has undergone ABF and L LE bypass and what sounds like R LE endovascular intervention. She has symptoms consistent with vasculogenic claudication but ABIs are 1. A CTA done to evaluate that showed that her LEFT profunda is disconnected, so in essence she has an aorto- popliteal prosthetic bypass. After a long discussion with the patient and her family, I think the mcc patency is much improved with a groin reconstruction (ilioprofunda bypass). Patient understands procedure and is ready to proceed. Procedure(s): L groin reconstruction Significant Findings GENERAL: A&OX3,NAD,GCS15 SKIN: Warm and dry/ incision to left groin intact w/o erythema, drainage or swelling. No hematoma present BLE warm with motor intact Strong Palpable R/L DP Allergies Coded Allergies Type Severity Reaction Last Updated Verified No Known Allergies 12/19/16 No 12/23/16 12/23/16 12/24/16 12/24/16 12/25/16 12/25/16 06:00 18:00 06:00 18:00 06:00 18:00 Intake Total 550 ml 600 ml 450 ml 1320 ml Output Total 1200 ml 1000 ml 1550 ml Balance -650 ml 600 ml -550 ml -230 ml Intake Oral 550 ml 600 ml 450 ml 1320 ml Output Urine Total 1200 ml 1000 ml 1550 ml # Bowel Movements 1 Orders Procedure Category Date Status Time ^ Other Nursing Orders JENNIE 12/23/16 In Process 08:40 Hydralazine Inj MED 12/24/16 Complete (Apresoline Inj) 17:00 Hydralazine Inj MED 12/24/16 Complete (Apresoline Inj) 19:00 Vital Signs Date Time Temp Pulse Resp B/P (MAP) Pulse Ox O2 Delivery O2 Flow Rate FiO2 12/25/16 10:00 66 12/25/16 09:00 72 12/25/16 08:11 98.9 90 17 180/87 (118) 98 12/25/16 08:00 66 12/25/16 07:30 66 12/25/16 06:00 68 12/25/16 05:00 70 12/25/16 04:00 68 12/25/16 03:00 67 12/25/16 03:00 98.7 70 16 129/72 (91) 94 12/25/16 02:00 66 12/25/16 01:00 66 12/25/16 00:00 68 12/24/16 23:00 69 12/24/16 23:00 99.1 73 12 128/67 (87) 95 12/24/16 22:00 74 12/24/16 21:01 98.8 85 20 155/80 (105) 96 12/24/16 21:00 78 12/24/16 20:00 82 12/24/16 19:00 81 12/24/16 18:00 80 12/24/16 17:00 64 12/24/16 16:00 64 12/24/16 15:27 98.1 65 16 193/93 (126) 97 12/24/16 15:00 63 12/24/16 14:00 64 12/24/16 13:00 62 12/24/16 12:21 97.6 66 16 145/82 (103) 97 12/24/16 12:00 68 12/24/16 11:00 66 12/24/16 10:00 68 12/24/16 09:14 98.8 74 16 157/89 (111) 93 12/24/16 09:00 72 12/24/16 08:00 68 12/24/16 07:00 69 12/24/16 06:07 73 12/24/16 05:19 72 12/24/16 04:14 70 12/24/16 03:25 98.7 70 18 152/85 (107) 93 12/24/16 03:25 69 12/24/16 02:45 68 12/24/16 01:19 69 12/24/16 00:03 71 12/23/16 23:59 98.8 73 20 151/81 (104) 93 12/23/16 23:59 73 12/23/16 22:13 72 12/23/16 21:30 73 12/23/16 20:15 70 12/23/16 19:45 99.6 75 19 163/81 (108) 95 12/23/16 19:45 72 12/23/16 18:37 16 12/23/16 18:00 103 12/23/16 17:00 76 12/23/16 16:00 64 12/23/16 15:00 68 12/23/16 15:00 98.7 68 18 122/68 (86) 91 12/23/16 14:00 74 12/23/16 13:00 68 12/23/16 12:44 15 12/23/16 12:00 88 12/23/16 11:51 18 12/23/16 11:00 98.3 68 18 142/76 (98) 94 12/23/16 11:00 68 12/23/16 10:00 63 12/23/16 09:00 68 12/23/16 08:00 69 12/23/16 07:00 66 12/23/16 07:00 97.2 68 18 114/66 (82) 90 12/23/16 06:30 68 12/23/16 05:36 68 12/23/16 04:00 67 12/23/16 03:50 98.8 71 19 110/59 (76) 93 12/23/16 03:20 67 12/23/16 02:09 70 12/23/16 01:15 71 12/23/16 00:57 72 12/22/16 23:50 98.2 74 18 119/58 (78) 93 12/22/16 23:00 67 12/22/16 22:00 66 12/22/16 21:00 72 12/22/16 20:00 72 12/22/16 19:15 66 12/22/16 19:15 99.1 72 19 139/69 (92) 93 12/22/16 18:00 56 12/22/16 17:00 77 12/22/16 16:00 87 12/22/16 15:00 63 12/22/16 15:00 98.3 77 18 123/77 (92) 96 12/22/16 14:00 77 12/22/16 13:00 74 12/22/16 12:00 84 12/22/16 11:04 97.3 93 18 128/65 (86 96 Hospital Course: 66 yo female with PAD who has undergone ABF and L LE bypass and what sounds like R LE endovascular intervention. She has symptoms consistent with vasculogenic claudication but ABIs are 1. A CTA done to evaluate that showed that her LEFT profunda is disconnected, so in essence she has an aorto-popliteal prosthetic bypass. 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 Patient understands procedure and is ready to proceed. Pt s/p Left groin reconstruction POD 6 w/o complications Pt d/c to home w/ [facility] for continued PT and rehabilitative services Arranged OP F/U in a few weeks w/ surveillance studies Discharge Condition: Good Discharge Disposition: Discharge to SNF Discharge Instructions: Leave left groin incision open to air Call to report any new onset Redness, drainage, swelling, fever or chills May shower NO TUB Baths until incision is fully healed Call the office to report any new concerns or questions Continue daily walking regimen (as tolerated) Continue medical management (anticoagulation/statin therapy) Tresa DELACRUZ [facility] [phone] Any questions or concerns: Call [facility] [phone] Tresa Ayoub Dec 25, 2016 11:08
[2016-12-25] MEDS ORDERED: OXYC-392 PO (11:11)
[2016-12-25] MEDS: ENOXAPARIN SODIUM 30 MG/0.3 ML SYRINGE SQ SCH (12:39)
--- NOTE | 2016-12-25 14:06 | HHI.FF ---
Face to Face Verification Diagnosis: (1) PAD (peripheral artery disease) Physical Therapy Order: Evaluate and Treat, Improve ambulation, Strength and gait training Instructions: Evaluate and treat Home Health Nursing Order: Signs/symptoms of disease process Instructions: evaluate and treat I have seen patient Elizabeth Rodríguez on 12/25/16. My clinical findings support the need for the requested home health care services because: pt will need continued medical management with out patient PT visitations for optimal healing Ltd mobility - disease progression High risk of falls I certify that my clinical findings support that this patient is homebound because: pt will need continued medical management with out patient PT visitations for optimal healing Post-op weakness Tresa Ayoub Dec 25, 2016 14:06
== END 2016-12-25 16:27 | disposition home health service (06) | DRG 272 ==
LOC: HSDI 05:59 → EDUNIT# 08:00 → HCIS 13:06
PROVIDERS: ADMIT Surgery; ATTEND Surgery
PROC: 041D0JJ Bypass Left Common Iliac Artery to Left Femoral Artery with Synthetic Substitute, Open Approach (ICD-10-PCS; principal; 2016-12-19 08:45)
PROC: 041L0JL Bypass Left Femoral Artery to Popliteal Artery with Synthetic Substitute, Open Approach (ICD-10-PCS; 2016-12-19 08:45)
DX: T82.898A Other specified complication of vascular prosthetic devices, implants and grafts, initial encounter (principal); J44.9 Chronic obstructive pulmonary disease, unspecified; K31.84 Gastroparesis; I73.9 Peripheral vascular disease, unspecified; I10 Essential (primary) hypertension; E03.9 Hypothyroidism, unspecified; F17.200 Nicotine dependence, unspecified, uncomplicated
CPT/HCPCS: 36415; 71020; 80048; 81001; 85027; 85610; 85730; 86850; 86900; 86901; 86920; 93005; C1768; J0131; J0360; J0690; J1100; J1644; J1650; J2250; J2270; J2370; J2710; J2720; J3010; J7040; J7120

== ENCOUNTER → 2017-03-28 | Outpatient (CLI) | payer OTHER ==
[~2017-03-28] MED LIST changes: -ASPI81TA5 PO; +ECASA81 PO; -LORA-373 PO; +LORA0.5T PO; +OXYC-392 PO
--- NOTE | 2017-03-30 10:12 | RADRPT ---
EXAM DATE/TIME: 03/28/2017 14:50 [facility] COMPARISON : No previous studies available for comparison. INDICATIONS : Evaluate for cryo-ablation HISTORY OF PRESENT ILLNESS: 67-year-old with a small, enhancing mass lesion in the posterior upper pole cortex of the right kidne y IMAGING STUDIES: Outside images were reviewed. A small enhancing mass lesion posteriorly in the upper pole the right k idney would be amenable to percutaneous cryoablation. ASSESSMENT: Enhancing mass lesion posteriorly in the upper pole cortex of the right kidney. PLAN: Cryoablation and possible biopsy of the right renal lesion Nico Barone MD on March 30, 2017 at 10:07 Board Certified Radiologist. This report was verified electronically.
== END ==
LOC: HRAD 14:30
PROVIDERS: ATTEND Urology
DX: N28.89 Other specified disorders of kidney and ureter (principal)

== ENCOUNTER 2017-04-10 07:47 | Day surgery (SDC) | payer OTHER ==
[~2017-04-10] VITALS: Ht 157.5 cm; Wt 54.5 kg
[2017-04-10 08:26] VITALS: BP 141/92; PULSE 55; RESP 20; TEMP 97.8; O2SAT 93
[2017-04-10 08:52] LABS: BASOPHIL # 0.1 TH/MM3 (0-0.2); BASOPHIL % 1.1 % (0.0-2.0); EOSINOPHIL # 0.1 TH/MM3 (0-0.4); EOSINOPHIL % 2.2 % (0.0-4.0); HEMATOCRIT 39.4 % (35.0-46.0); LYMPH % 16.7 % (9.0-44.0); LYMPHOCYTE # 1.2 TH/MM3 (1.0-4.8); MEAN CELL VOLUME 84.5 FL (80.0-100.0); MEAN CORPUSCULAR HEMOGLOBIN 27.9 PG (27.0-34.0); MEAN PLATELET VOLUME 8.1 FL (7.0-11.0); MONO % 6.9 % (0.0-8.0); MONOCYTE # 0.5 TH/MM3 (0-0.9); NEUT % 73.1 % (16.0-70.0); PLATELET COUNT 195 TH/MM3 (150-450); RED BLOOD COUNT 4.67 MIL/MM3 (4.00-5.30); RED CELL DISTRIBUTION WIDTH 29.1 % (11.6-17.2); WHITE BLOOD COUNT 6.9 TH/MM3 (4.0-11.0)
[2017-04-10 08:57] LABS: INTERNATIONAL NORMALIZED RATIO 1.1 RATIO; PROTHROMBIN TIME - PATIENT 10.7 SEC (9.8-11.6)
[2017-04-10 09:12] LABS: BICARBONATE 27.2 MEQ/L (21.0-32.0); CALCIUM 9.2 MG/DL (8.5-10.1); CREATININE 0.77 MG/DL (0.50-1.00)
[2017-04-10 09:46] LABS: OVALOCYTES 1+ (NORMAL)
[2017-04-10] MEDS ORDERED: LIDOCAINE HCL 1% 20 ML VIAL ONE (09:58)
[2017-04-10] MEDS ORDERED: ceFAZolin 2 GM PREMIX 50 ML ONE (09:58)
[2017-04-10] MEDS ORDERED: MIDAZOLAM HCL 2 MG/2 ML VIAL ONE (10:00)
[2017-04-10] MEDS ORDERED: ePHEDrine/NS 25 MG/5 ML SYRINGE IV ONE (12:00)
[2017-04-10] MEDS ORDERED: PROPOFOL 200 MG/20 ML AMP IV ONE (12:00)
[2017-04-10] MEDS ORDERED: DEXAMETHASONE SOD PHOS 4 MG/ML VIAL IV ONE (12:00)
[2017-04-10] MEDS ORDERED: NEOSTIGMINE 5 MG/5 ML SYRINGE IV PUSH ONE (12:00)
[2017-04-10] MEDS ORDERED: ONDANSETRON HCL 4 MG/2 ML VIAL IV PUSH ONE (12:00)
[2017-04-10] MEDS ORDERED: PHENYLEPH/NS 1000 MCG/10 ML SYR IV ONE (12:00)
[2017-04-10] MEDS ORDERED: ROCURONIUM INJ 50 MG/5 ML SYRINGE IV PUSH ONE (12:00)
[2017-04-10] MEDS ORDERED: LIDOCAINE HCL 1% PF 5 ML SYRINGE OTHER ONE (12:00)
[2017-04-10] MEDS ORDERED: GLYCOPYRROLATE 1 MG/5 ML SYRINGE IV PUSH ONE (12:00)
[2017-04-10] MEDS ORDERED: DO NOT ADM ANY ANTICOAGULANT DRUGS PRN (12:52)
[2017-04-10] MEDS ORDERED: oxyCODONE/ACETAMINOPHEN 5 MG/325 MG TAB PO PRN (13:00)
--- NOTE | 2017-04-10 13:00 | PD.RAD ---
Post CT Procedure Prog Note Pre Procedure Diagnosis: (1) Right renal mass Post Procedure Diagnosis: (1) Right renal mass Procedure Date: Apr 10, 2017 Supervising Radiologist: Nico Barone Anesthesia: General Plan of Activity Patient to Unit: PACU Patient Condition: Good See PACS Report for procedural detail/treatment Biopsy Imaging Guidance: CT Side: Right Biopsy Procedure: Kidney Specimen: Core Biopsy Findings: Bx and cryoablation Nico Barone MD Apr 10, 2017 13:00
[2017-04-10] MEDS ORDERED: *ENALAPRILAT 1.25 MG/ML VIAL PERIprocedural Use ONLY ONE (13:43)
[2017-04-10] MEDS ORDERED: *morphine SULFATE 8 MG/ML PERIprocedure ONLY ONE ×2 (13:43→14:13)
[2017-04-10 13:56] LABS: AUTOMATED NEUTROPHIL # 5.1 TH/MM3 (1.8-7.7); BASOPHIL % 0.6 % (0.0-2.0); EOSINOPHIL # 0.1 TH/MM3 (0-0.4); EOSINOPHIL % 1.3 % (0.0-4.0); HEMATOCRIT 36.6 % (35.0-46.0); LYMPH % 8.1 % (9.0-44.0); LYMPHOCYTE # 0.5 TH/MM3 (1.0-4.8); MEAN CELL VOLUME 84.9 FL (80.0-100.0); MEAN CORPUSCULAR HEMOGLOBIN 27.8 PG (27.0-34.0); MEAN CORPUSCULAR HGB CONC 32.8 % (32.0-36.0); MEAN PLATELET VOLUME 8.3 FL (7.0-11.0); MONO % 3.2 % (0.0-8.0); MONOCYTE # 0.2 TH/MM3 (0-0.9); NEUT % 86.8 % (16.0-70.0); PLATELET COUNT 155 TH/MM3 (150-450); RED BLOOD COUNT 4.32 MIL/MM3 (4.00-5.30); RED CELL DISTRIBUTION WIDTH 27.7 % (11.6-17.2); WHITE BLOOD COUNT 5.9 TH/MM3 (4.0-11.0)
[2017-04-10 14:25] VITALS: BP 149/87; PULSE 59; RESP 18; TEMP 97.9; O2SAT 96
--- NOTE | 2017-04-10 14:28 | RADRPT ---
EXAM DATE/TIME: 04/10/2017 14:12 [facility] COMPARISON: No previous studies available for comparison. INDICATIONS : Status post right renal biopsy. MEDICAL HISTORY : Chronic obstructive pulmonary disease. SURGICAL HISTORY : CABG. ENCOUNTER: Initial ACUITY: 1 day PAIN SCORE: 6/10 LOCATION: chest FINDINGS: A single frontal expiratory view of the chest was performed. The lungs are symmetrically aerated and clear. There is some chronic interstitial changes bilaterally. No evidence of pneumothorax. Mediast inal structures are in the midline. There is evidence of previous cardiothoracic surgery. There surgi anahi clips in the left axilla. The bony structures are grossly intact. CONCLUSION: No evidence of pneumothorax. Dequan Farooq MD on April 10, 2017 at 14:25 Board Certified Radiologist. This report was verified electronically.
--- NOTE | 2017-04-10 14:34 | RADRPT ---
EXAM DATE/TIME: 04/10/2017 10:29 INDICATIONS : Right renal mass. Anesthesia and pain control was provided by the Anesthesia department. DEVICE(S): 1.) Cryoablation probe 14g MEDICAL HISTORY : Cardiovascular disease. SURGICAL HISTORY : Hysterectomy. Cholecystectomy. ENCOUNTER: Initial ACUITY: 1 day PAIN SCORE: 0/10 LOCATION: Right PROCEDURE : 1. CT guided cryoablation. Under sterile conditions and using aseptic technique with CT guidance the mass was localized and sati sfactory approach was taken to access the lesion. Using automated exposure control and adjustment of the mA and/or kV according to patient size, radiation dose was kept as low as reasonably achievable to obtain optimal diagnostic quality images. DICOM format image data is available electronically for review and comparison. [employer]orsight Cryoprobes were employed using percutaneous technique employing the prescribed probes. A freeze-thaw, freeze-thaw technique was employed and serial imaging demonstrated an ice ball encomp assing the entire lesion. Post procedure images demonstrate expected postoperative changes without e vidence of hematoma. CONCLUSION: Uncomplicated cryoablation as above. Procedure was done in conjunction with 20-gauge core biopsy . Nico Barone MD on April 10, 2017 at 14:28 Board Certified Radiologist. This report was verified electronically.
--- NOTE | 2017-04-10 14:35 | RADRPT ---
EXAM DATE/TIME: 04/10/2017 10:29 [facility] COMPARISON: No previous studies available for comparison. INDICATIONS : Right renal mass. BIOPSY SITE: Right Anesthesia and pain control was provided by the Anesthesia department. DEVICE(S): 1.) 18 gauge Temno core biopsy needle MEDICAL HISTORY : Cardiovascular disease. SURGICAL HISTORY : Cholecystectomy ENCOUNTER: Initial ACUITY: 1 day PAIN SCORE: 0/10 LOCATION: Right A total of two core specimen(s) were obtained and sent to the laboratory for pathologic evaluation. PROCEDURE: 1. CT guided renal biopsy. 2. Conscious sedation with continuous EKG and oximetry monitoring. 3. EKG and oximetry remained stable throughout the procedure. Prior to the procedure informed consent was obtained. Any appropriate prior imaging studies were rev iewed. Using automated exposure control and adjustment of the mA and/or kV according to patient size, radiat ion dose was kept as low as reasonably achievable to obtain optimal diagnostic quality images. DICOM format image data is available electronically for review and comparison. The site was prepped in a sterile fashion. Full sterile technique was used, including cap, mask, reema rile gloves and gown and a large sterile sheet. Hand hygiene and 2% chlorhexidine and/or betadine/al cohol prep was utilized per protocol for cutaneous antisepsis. The skin and subcutaneous tissues wer e infiltrated with local anesthetic solution. With CT guidance the previously identified target was localized. Biopsy was performed using the presc ribed needle as above. Adequate hemostasis was obtained with compression at the puncture site. Follow-up CT scan reveals no hemorrhage. The patient tolerated the procedure well and there were no complications. The patient was returned to the Radiology Outpatient Unit in stable condition. CONCLUSION: Uncomplicated CT guided biopsy. Procedure was done in conjunction with cryoablation. Nico Barone MD on April 10, 2017 at 14:32 Board Certified Radiologist. This report was verified electronically.
[2017-04-10 14:44] VITALS: BP 181/98; PULSE 61; RESP 18; O2SAT 93
[2017-04-10 14:44] LABS: OVALOCYTES 1+ (NORMAL)
[2017-04-10 15:14] VITALS: BP 160/91; PULSE 60; RESP 18; O2SAT 94
[2017-04-10 15:53] LABS: AUTOMATED NEUTROPHIL # 7.4 TH/MM3 (1.8-7.7); BASOPHIL % 0.5 % (0.0-2.0); EOSINOPHIL % 0.3 % (0.0-4.0); HEMATOCRIT 38.5 % (35.0-46.0); HEMOGLOBIN 12.5 GM/DL (11.6-15.3); LYMPH % 5.9 % (9.0-44.0); LYMPHOCYTE # 0.5 TH/MM3 (1.0-4.8); MEAN CELL VOLUME 84.6 FL (80.0-100.0); MEAN CORPUSCULAR HEMOGLOBIN 27.4 PG (27.0-34.0); MEAN CORPUSCULAR HGB CONC 32.4 % (32.0-36.0); MEAN PLATELET VOLUME 8.2 FL (7.0-11.0); MONO % 2.3 % (0.0-8.0); MONOCYTE # 0.2 TH/MM3 (0-0.9); PLATELET COUNT 213 TH/MM3 (150-450); RED BLOOD COUNT 4.55 MIL/MM3 (4.00-5.30); RED CELL DISTRIBUTION WIDTH 28.8 % (11.6-17.2); WHITE BLOOD COUNT 8.1 TH/MM3 (4.0-11.0)
[2017-04-10 16:14] VITALS: BP_SYST 150; BP_SYST 160; BP_DIAS 84; BP_DIAS 91; PULSE 57; RESP 18; O2SAT 95
[2017-04-10 16:29] LABS: BURR CELLS 1+ (NORMAL); OVALOCYTES 1+ (NORMAL)
== END 2017-04-10 18:28 | disposition home or self-care (01) ==
LOC: HROP 07:47 → HRIP 07:50 → HROP 18:28
PROVIDERS: ATTEND Urology
DX: N28.89 Other specified disorders of kidney and ureter (principal); I25.10 Atherosclerotic heart disease of native coronary artery without angina pectoris; I10 Essential (primary) hypertension; J44.9 Chronic obstructive pulmonary disease, unspecified; E78.5 Hyperlipidemia, unspecified; Z95.1 Presence of aortocoronary bypass graft
CPT/HCPCS: 00862; 50200; 50593; 71010; 77012; 77013; 80048; 85025; 85610; 85730; 88305; C2618; J0690; J1100; J2250; J2270; J2370; J2405; J2710; J3010

== ENCOUNTER 2017-04-17 13:19 | Day surgery (SDC) | payer OTHER ==
[~2017-04-17 13:19] MED LIST changes: -ECASA81 PO; -OXYC-392 PO
[2017-04-17 13:44] VITALS: BP 176/96; PULSE 63; RESP 20; TEMP 97.8; O2SAT 98
--- NOTE | 2017-04-21 11:17 | RADRPT ---
EXAM DATE/TIME: 04/17/2017 13:49 [facility] COMPARISON : INDICATIONS : Renal cryoablation follow up OBJECTIVE: Temperature: 97.8 Heart Rate: 63 Blood Pressure: 176/96 Respiratory: 20 Oximetry: 98 HISTORY OF PRESENT ILLNESS: 67-year-old with right renal mass post biopsy and cryoablation. Patient reports minor, 4/10 pain cont rolled with pain meds. Urination and bowel movements within normal limits. PHYSICAL EXAMINATION: Biopsy site healing appropriately. No erythema. ASSESSMENT: Patient appears to be doing well post right renal biopsy and cryoablation. PLAN: Patient instructed to follow up with Dr. Bray. Recommend imaging in approximately 3 months. TIME SPENT: Seen by nurse only. Nico Barone MD on April 21, 2017 at 11:09 Board Certified Radiologist. This report was verified electronically.
== END 2017-04-17 13:55 | disposition home or self-care (01) ==
LOC: HROP 13:19 → HRIP 13:22 → HROP 13:55
PROVIDERS: ATTEND Radiology Body Imaging
DX: N28.89 Other specified disorders of kidney and ureter (principal)